=== PATIENT | female | born 1965 | race Caucasian/White ===

== ENCOUNTER 2019-06-12 15:27 | Observation (INO) ==
[2019-06-12] MEDS ORDERED: NS 1,000 ML IV ONE ×2 (16:09→18:51)
--- NOTE | 2019-06-12 16:14 | PROVIDER DOCUMENTATION ---
HPI-Abdominal Pain/GI Problem - General Chief Complaint: Dizziness Stated Complaint: ABN LAB Time Seen by Provider: 06/12/19 16:01 Source: patient Allergies/Adverse Reactions: Patient Allergies Allergy/AdvReac Type Severity Reaction Status Date / Time Penicillins Allergy DIZZINESS Verified 01/24/19 07:43 NSAIDS (Non-Steroidal AdvReac Unknown Verified 06/12/19 15:41 Anti-Inflamma CLOROX Allergy SHORTNESS Uncoded 01/24/19 07:43 OF BREATH Home Medications: Home Medication List Medication Instructions Recorded Confirmed Last Taken Type Albuterol Sulfate [Albuterol 1 dose INH DIRECTED 01/24/19 06/12/19 Unknown History Sulfate Hfa] Metoprolol [Lopressor] 50 mg PO DAILY 01/24/19 06/12/19 Unknown History Pantoprazole [Protonix] 40 mg PO DAILY@0700 01/24/19 06/12/19 Unknown History Baclofen [Lioresal] 1 tab PO DAILY 06/12/19 06/12/19 Unknown History Fluticasone/Umeclidin/Vilanter 1 ea INHALATION DIRECTED 06/12/19 06/12/19 Unknown History [Trelegy Ellipta 100-62.5-25] Losartan Potassium 1 tab PO DAILY 06/12/19 06/12/19 Unknown History Trazodone [Desyrel] 50 mg PO QHS 06/12/19 06/12/19 Unknown History - History of Present Illness-ABD Nature of Presenting Problems: 53 YOF with PMH of HTN, RA and MVP presents with c/o abnormal labs from PCP of low K has been taking replacement x 5 days now but continues to have N/V/D x 4 days with up to 15 loose stools in the last 24 hrs. She c/o dizziness, generalized weakness, abdominal pain. Abdominal Pain Onset Location: reports: generalized abdomen Pain Radiation: reports: no radiation Quality of Pain: reports: aching, cramping Severity in ED: reports: severe Onset/Duration: reports: 4 days ago Timing: reports: still present Activities at Onset: reports: none Exposure to sick contacts?: No Modifying Factors: improves with: nothing Associated Symptoms: reports: diarrhea, nausea, vomiting, weakness Last BM: this afternoon Dark Stools Present?: reports: none noticed Rectal Bleeding: reports: none # of Diarrhea Episodes: 15 (in 24 hrs ) Rectal Pain: reports: none # of Vomiting Episodes: 6 Emesis Description: reports: clear Bruising or Bleeding Gums?: No Similar Symptoms Previously?: No 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 denies: see HPI, chills, fever, fatique, night sweats, weight gain, weight loss, other Eyes: reports: no symptoms reported. denies: see HPI, discharge, dry eyes, decreased vision, blurred vision, double vision, eye pain, redness, other Ears, Nose, Mouth & Throat: reports: no symptoms reported. denies: see HPI, ear discharge, ear pain, hearing loss, tinnitus, epistaxis, sinus problem, nose pain, loose teeth, mouth/dental pain, mouth swelling, hoarseness, throat pain, throat swelling, other Cardiovascular: reports: no symptoms reported. denies: see HPI, chest pain, edema, heart murmur, irregular heart rate, orthopnea, palpitations, poor circulation, PND, syncope, other Respiratory: reports: chronic cough. denies: no symptoms reported, see HPI, cough, dyspnea on exertion, excessive sputum production, hemoptysis, pleurisy, shortness of breath, wheezing, other Gastrointestinal: reports: see HPI, abdominal pain, diarrhea, nausea, poor appetite, vomiting. denies: no symptoms reported, hematemesis, constipation, difficulty swallowing, frequent heartburn, rectal bleeding, other Genitourinary: reports: no symptoms reported. denies: see HPI, dysuria, discharge, frequency, flank pain, frequent UTI's, hematuria, hesitency, i ncontinence, urinary retention, urgency, other Musculoskeletal: reports: muscle weakness. denies: no symptoms reported, see HPI, bone pain, back pain, frequent leg cramps, joint pain, joint swelling, muscle aches, neck pain, other Integumentary: reports: no symptoms reported. denies: see HPI, hives, hair loss, itching, mole changes, nail changes, rash, skin sores/ulcer, skin thickening, other Neurological: reports: dizziness/vertigo. denies: no symptoms reported, see HPI, ataxia, headache/migraines, loss of balance, numbness, paresthesia, seizure, slurred speech, syncope, tremors, other Psychiatric: reports: no symptoms reported. denies: see HPI, anxiety, anti- depressant use, alcohol/drug dependence, depression, emotional problems, insomnia, panic attacks, suicidal thoughts, other Endocrine: reports: no symptoms reported. denies: see HPI, change in skin pigm ent, excessive sweating, goiter, cold intolerance, heat intolerance, increased hunger, increased thirst, polyuria, other Hematologic/Lymphatic: reports: no symptoms reported. denies: see HPI, blood clots, easy bruising, low blood count, lymphedema, prolonged bleeding, swollen lymph nodes, transfusions, other Allergic/Immunologic: reports: no symptoms reported. denies: see HPI, allergic reactions, allergic rhinitis, asthma, eczema, food allergy, frequent infections, hay fever, hives, positive PPD, urticaria, other Past History - Adult - PAST MEDICAL HISTORY-ADULT Review of Records: reports: Nursing Assessment Review, Social history reviewed & non-contributory. Major Childhood Illnesses: reports: denies history Cardiovascular: reports: HTN Respiratory: reports: asthma Gastrointestinal: reports: denies history Obstetrical/Gynecological: reports: denies history Genitourinary: reports: denies history Musculoskeletal: reports: arthritis (RA) Neurological: reports: denies history Psychiatric: reports: anxiety Endocrine/Immune: reports: RA, other (Raynauds) Other Conditions: reports: denies history - PRIOR SURGERIES/PROCEDURES Surgical/Procedure History: reports: hysterectomy, BTL - IMMUNIZATION STATUS Childhood Immunizations: See Nurse Assessment Flu Vaccine: See Nurse Assessment - FAMILY HISTORY Family History: reviewed, not pertinent Physical Exam-General - PHYSICAL EXAM-ADULT Initial Vital Signs Reviewed: Yes - CONSTITUTIONAL General Appearance: alert, no apparent distress - EYES Eyes: PERRL/EOMI, pink conjunctivae - HEAD, EARS, NOSE, MOUTH & THROAT HENMT: normocephalic/atraumatic, moist mucous membranes, normal ENT inspection - NECK Neck: non-tender, full range of motion, supple, normal inspection - RESPIRATORY Respiratory: chest non-tender, no pleuratic chest pain, no respiratory distress, rhonchi - CARDIOVASCULAR Cardiovascular: normal peripheral pulses, regular rate, rhythm, no edema, no gallop, no JVD, no murmur - GASTROINTESTINAL (ABDOMEN) Abdominal Exam: soft, tenderness - LYMPHATIC Lymphatic: no adenopathy - MUSCULOSKELETAL Back Exam: normal inspection, no CVA tenderness, no vertebral tenderness Extremity: normal range of motion, non-tender, normal gait, normal inspection, no pedal edema, no calf tenderness Peripheral Pulses: radial (R): 2+, radial (L): 2+ - SKIN Integumentary: normal color, normal turgor, warm/dry - NEUROLOGIC Neurologic: grossly normal. negative: aphasia, facial droop, focal weakness, motor weakness - PSYCHIATRIC Psych/Mental Status: normal mood/affect, oriented x 3 Progress - PLAN OF CARE/RESULTS Progress/Plan/Lab Results: Vital Signs - 8 hr 06/12/19 15:32 Temperature 97.9 F Pulse Rate 107 H Respiratory Rate 20 Blood Pressure 157/101 O2 Sat by Pulse Oximetry 95 Orders Category Date Time Status ED: Orthostatic Vital Signs (E DIRECTED Care 06/12/19 16:02 Active Saline Loc NOW Care 06/12/19 16:[address] ABD/PELVIS W/IV CONT ONLY [CT] Stat Exams 06/12/19 16:10 Ordered CBC WITH ELECTRONIC DIFF [HEME] Stat Lab 06/12/19 16:02 Uncollected COMPREHENSIVE METABOLIC PANEL [CHEM] Stat Lab 06/12/19 16:02 Uncollected LIPASE [CHEM] Stat Lab 06/12/19 16:02 Uncollected UA NIMS W/REFLEX CULT [URINALYSIS] Stat Lab 06/12/19 16:02 Uncollected Ns 1000 ml IV Bolus X1 Med 06/12/19 16:09 Ordered 0.9% Sodium Chloride Inj [Ns] 1,000 ml IV 999 mls/hr EKG [EKG] Stat Ther 06/12/19 16:02 Ordered Result Diagrams: 06/12/19 16:44 06/12/19 16:44 - CT/MRI 1 CT Study: Abdomen, Pelvis Impression: See EMR Report (EXAM: CT ABD/PELVIS W/IV CONT ONLY HISTORY: abd pain, tenderness, n/v TECHNIQUE: CT abdomen and pelvis with intravenous contrast, but without oral contrast COMPARISON: 09/12/2010 FINDINGS: No calcified gallstones or adjacent inflammation. No focal hepatic abnormality identified on this noncontrasted exam. No splenomegaly. No inflammation about the pancreas. There are several pancreatic calcifications on the current study. No pseudocyst. Normal adrenal glands and kidneys. No hydronephrosis. Severe atherosclerosis. No bowel obstruction. No abscess. There is a fat filled umbilical hernia. No bowel loop within this. Urinary bladder is distended and is normal. The uterus has been removed. No pelvic mass. Several colonic diver ticula. There are pars defects to the L5 vertebral mild subluxation of L5 on S1. IMPRESSION: 1.Pancreatic calcifications likely due to prior pancreatitis. No CT evidence of acute pancreatitis. 2.Hysterectomy 3.Diverticulosis 4.Atherosclerosis 5.Fat filled umbilical hernia This exam was performed using automated exposure control, adjustment of mA or kV according to patient size, and/or use of iterative reconstruction technique. Electronically signed by Jimmy Gauthier 06/12/2019 6:11 PM 06/12/19 1811 Interpreting Physician: Jimmy Gauthier MD Dictated Date/Time: 06/12/19 180 cc: Vonnie Agudelo; None,PCP) - CONSULTS/PCP/HOSPITALIST Notification #1 *Consult/PCP/Hospitalist*: Dr. levine Time Discussed: 18:51 Consult Disposition: Admit Departure - Departure Date of Disposition Decision: 06/12/19 Time of Disposition Decision: 18:20 DIAGNOSIS: Hypokalemia, Nausea vomiting and diarrhea Disposition: ADMITTED INPATIENT 09 Certified Medical Emergency: Emergent Condition: Stable Referrals and Follow-Ups: None,PCP [Primary Care Provider] - - Critical Care Note This patient required my direct & personal management of CC.: No Attestation - Physician/ SHAI Attestation Patient care was provided by Advanced Practice Provider:: Yes Advanced Practice Provider:: Vonnie Agudelo Advanced Practice Provider documentation review:: The Mid-level provider documentation, treatment plan and medical decision making was reviewed by the physician who agrees with all treatment and medical decision making by the MLP. The physician spent face to face time with patient:: No Advanced Practice Provider documentation review:: Supervising physician onsite and consulted in the evaluation and care of this patient. The physician did not have a face to face encounter with the patient.
[2019-06-12 16:56] LABS: URINE SOURCE CLEAN CATCH
[2019-06-12 17:01] LABS: BASO# 0.04 X1000 (0.0-0.2); BASO% 0.5 % (0.0-0.8); EOS# 0.15 X1000 (0.0-0.7); HEMATOCRIT 40.8 % (37.0-47.0); HEMOGLOBIN 13.2 g/dL (12.0-16.0); LYMPH# 2.76 X1000 (1.2-3.4); LYMPH% 37.4 % (20.5-51.1); MCHC 32.4 g/dL (33-37); MONO# 0.59 X1000 (0.11-0.59); MPV 9.2 FL (7.4-10.4); NEUT# 3.84 X1000 (1.4-6.5); NEUT% 52.1 % (42.2-75.2); PLT 384 X1000 (130-400); RDW 13.1 % (11.5-14.5); WBC 7.38 X1000 (4.8-10.8)
[2019-06-12 17:16] LABS: BILIRUBIN URINE NEGATIVE (NEGATIVE); BLOOD URINE NEGATIVE (NEGATIVE); COLOR STRAW; GLUCOSE URINE NEGATIVE (NEGATIVE); KETONE URINE NEGATIVE (NEGATIVE); LEUKOCYTES URINE NEGATIVE (NEGATIVE); NITRITE URINE NEGATIVE (NEGATIVE); PH URINE 6.5; PROTEIN URINE NEGATIVE (NEGATIVE); SP GRAVITY URINE 1.005; TURBIDITY URINE CLEAR (CLEAR); UR EPITHELIAL CELLS <10 /HPF (<10); URINE BACTERIA NEGATIVE /HPF; URINE RBC <10 /HPF (<10); URINE WBC <10 /HPF (<10); UROBILINOGEN URINE NORMAL (NORMAL)
[2019-06-12 17:18] LABS: AGAP 14; ALBUMIN 3.4 g/dL (3.5-5.0); ALKALINE PHOSPHATASE 159 U/L (32-104); BUN 5 mg/dL (8-22); CALCIUM 8.7 mg/dL (8.8-10.2); CHLORIDE 107 mmol/L (98-107); COSMO 286; CREATININE 0.4 mg/dL (0.5-0.9); ESTIMATED GFR > 60; GLUCOSE 95 mg/dL (70-104); GOT 18 U/L (10-30); GPT 12 U/L (10-36); LIPASE 151 U/L (13-60); SODIUM 145 mmol/L (136-145); TCO2 24 mmol/L (25-35); TOTAL BILIRUBIN < 0.15 mg/dL (0.20-1.00); TOTAL PROTEIN 6.2 g/dL (6.3-8.3)
[2019-06-12] MEDS ORDERED: TYLENOL PO ONE (18:05)
[2019-06-12] MEDS: POTASSIUM CHLORIDE 20 MEQ/SWI 20 MEQ/100 ML IVPB IV SCH ×2 (18:05→23:55)
--- NOTE | 2019-06-12 18:13 | Diag Imaging Result Doc PS360 ---
EXAM: CT ABD/PELVIS W/IV CONT ONLY HISTORY: abd pain, tenderness, n/v TECHNIQUE: CT abdomen and pelvis with intravenous contrast, but without oral contrast COMPARISON: 09/12/2010 FINDINGS: No calcified gallstones or adjacent inflammation. No focal hepatic abnormality identified on this noncontrasted exam. No splenomegaly. No inflammation about the pancreas. There are several pancreatic calcifications on the current study. No pseudocyst. Normal adrenal glands and kidneys. No hydronephrosis. Severe atherosclerosis. No bowel obstruction. No abscess. There is a fat filled umbilical hernia. No bowel loop within this. Urinary bladder is distended and is normal. The uterus has been removed. No pelvic mass. Several colonic diverticula. There are pars defects to the L5 vertebral mild subluxation of L5 on S1. IMPRESSION: 1.Pancreatic calcifications likely due to prior pancreatitis. No CT evidence of acute pancreatitis. 2.Hysterectomy 3.Diverticulosis 4.Atherosclerosis 5.Fat filled umbilical hernia This exam was performed using automated exposure control, adjustment of mA or kV according to patient size, and/or use of iterative reconstruction technique. Electronically signed by Jimmy Gauthier 06/12/2019 6:11 PM
[2019-06-12] MEDS ORDERED: TYLENOL PO PRN (18:51)
[2019-06-12] MEDS: MORPHINE IV PRN ×2 (20:26→22:52)
[2019-06-12] MEDS: ZOFRAN IV PRN (20:27)
[2019-06-13] MEDS: MORPHINE IV PRN ×4 (01:24→12:45)
[2019-06-13] MEDS: ZOFRAN IV PRN ×3 (01:25→12:45)
[2019-06-13 06:30] LABS: BASO# 0.04 X1000 (0.0-0.2); BASO% 0.6 % (0.0-0.8); EOS# 0.19 X1000 (0.0-0.7); HEMATOCRIT 37.3 % (37.0-47.0); HEMOGLOBIN 11.9 g/dL (12.0-16.0); IMM GRAN# 0.01 X1000 (0.0-0.04); IMM GRAN% 0.2 % (0.0-0.5); LYMPH# 2.65 X1000 (1.2-3.4); LYMPH% 42.5 % (20.5-51.1); MCH 32.9 PG (27-31); MCHC 31.9 g/dL (33-37); MONO# 0.67 X1000 (0.11-0.59); MONO% 10.7 % (1.7-9.3); MPV 9.3 FL (7.4-10.4); NEUT# 2.68 X1000 (1.4-6.5); PLT 323 X1000 (130-400); RBC 3.62 XMIL (4.2-5.4); RDW 13.1 % (11.5-14.5); WBC 6.24 X1000 (4.8-10.8)
[2019-06-13 06:52] LABS: AGAP 13; ALKALINE PHOSPHATASE 137 U/L (32-104); BUN 3 mg/dL (8-22); CHLORIDE 105 mmol/L (98-107); COSMO 279; CREATININE 0.4 mg/dL (0.5-0.9); ESTIMATED GFR > 60; GLUCOSE 87 mg/dL (70-104); GOT 15 U/L (10-30); GPT 10 U/L (10-36); POTASSIUM 3.2 mmol/L (3.5-5.1); SODIUM 142 mmol/L (136-145); TCO2 25 mmol/L (25-35); TOTAL PROTEIN 5.2 g/dL (6.3-8.3)
[2019-06-13] MEDS ORDERED: KLOR-CON PO ONE (06:58)
[2019-06-13 07:38] VITALS: BP 153/95
--- NOTE | 2019-06-13 22:21 | HISTORY AND PHYSICAL ---
ADDENDUM: Patient seen and examined by myself. Full note dictated and discussed with nurse practitioner. The patient presented to the hospital noting that she has had abdominal pain, nausea and vomiting for the past 4 days. States she has had multiple loose stools. She will be admitted to the hospital, IV fluids. We will place her on liquid diet. Replace her potassium and we will follow. cc: Jarrett Acevedo MD
--- NOTE | 2019-06-14 09:39 | DISCHARGE SUMMARY ---
ADMISSION DATE: 06/12/2019 DISCHARGE DATE: 06/13/2019 DISCHARGE DIAGNOSES: 1. Hypertension, improved. 2. Hypokalemia, resolved. 3. Nausea, vomiting, improved. The patient notes that she was able to tolerate a regular diet. 4. Abdominal pain, improved. 5. Rheumatoid arthritis. 6. Mitral valve prolapse. 7. Chronic reflux. 8. Chronic obstructive pulmonary disease. CONSULTATIONS: None. PROCEDURES: None. BRIEF HOSPITAL COURSE: The patient is a 53-year-old female who presented to the hospital, treated in the usual fashion, placed on IV fluids, Zofran. Continued on her home medications. Thankfully, she continued to improve. On discharge, her potassium was improved. Blood pressures were stable. We offered the patient to stay in the hospital overnight to ensure that she was better. She was persistent that she was improved and wanted to go home. DISCHARGE DISPOSITION: Will be discharged home. FOLLOWUP: Will continue to follow up with her primary care. DIET AND ACTIVITY: No other changes were made on her diet or activity otherwise. cc: Jarrett Acevedo MD
== END 2019-06-13 16:52 | disposition home or self-care (01) | DRG 641 ==
LOC: P.ED 15:27 → SUATTDRO 19:26 → P.MEDSURG 19:26 → INTOOBSV 19:26
PROVIDERS: ATTEND Family Medicine